=== PATIENT | female | born 1990 | race Caucasian/White ===

== ENCOUNTER 2016-03-23 12:50 | Outpatient (CLI) | payer BC ==
--- NOTE | 2016-03-23 15:28 | DIAGNOSTIC IMAGING REPORT ---
PROCEDURE: US OB DETAILED ANATOMIC INDICATION: ANATOMY TECHNIQUE: Russell scale, color, and spectral Doppler images of the second trimester gravid uterus were obtained. COMPARISON: None. FINDINGS: A single living intrauterine is in vertex presentation. There is regular cardiac activity at a rate of 160 beats per minute. The placenta is posterior and away from the internal cervical os. The cervix is closed measuring approximately 6 cm in length. The amniotic fluid volume is subjectively normal. Biparietal diameter 4.6 cm of 19 weeks and 6-day Head circumference 17 cm at 19 weeks and 4-day Abdominal circumference 14 cm of 19 weeks and 3-day Femur length 3.1 cm at 19 weeks and 4 days Head to abdominal circumference ratio and femur length to abdominal circumference ratios are normal. Estimated weight 294 g Composite gestational age 19 weeks and 4 days, NAYELY 08/13/2016 There was visualization of a number of normal structures including the nuchal region, spine, to the extent that could be visualized, diaphragm, fluid-filled stomach, kidneys, abdomen, urinary bladder, upper and lower extremities, and genitals. A three-vessel umbilical cord, normal and placental cord insertion sites were seen. Brain anatomy, nose and lips, heart views and the head were not well seen. Recommend repeat scan in 2 weeks. IMPRESSION: 1. Single living intrauterine with a composite gestational age of 19 weeks and 4 days, NAYELY 08/13/2016 2. Brain anatomy, nose and lips, heart views and the head were not well seen. Recommend repeat scan in 2 weeks.
== END 2016-03-23 23:00 ==
LOC: US SRH 12:50
DX: O35.8XX0 Maternal care for other (suspected) fetal abnormality and damage, not applicable or unspecified (principal); Z3A.19 19 weeks gestation of pregnancy

== ENCOUNTER 2016-04-05 13:41 | Outpatient (CLI) | payer BC ==
--- NOTE | 2016-04-05 18:43 | DIAGNOSTIC IMAGING REPORT ---
PROCEDURE: US OB RE-EVALUATION INDICATION: VAGINAL BLEEDING, TWO WEEK RECHECK FROM PREVIOUS US TECHNIQUE: Transabdominal williamson scale and color Doppler imaging was obtained of the gravid uterus. COMPARISON: OB ultrasound 03/23/16 FINDINGS: Single live intrauterine is in vertex presentation. Regular heart rate at 137 beats per minute. Placenta is posterior and has a normal appearance without previa or abruption. The cervix is closed and measures 3.6 cm in length. Amniotic fluid volume is subjectively normal. Biparietal diameter 5.2 cm at 21 weeks and 6 days Head circumference 19.6 cm at 21 weeks and 6 days Abdominal circumference 16.6 cm at 21 weeks and 3 days Femur length 3.7 cm 521 weeks and 5 days Normal anatomy with the head, brain, heart, nose and lips well visualized. IMPRESSION: 1. Single live intrauterine with a composite gestational age of 21 weeks and 5 days, NAYELY 08/11/2016. 2. Completed normal anatomy from previous study
== END 2016-04-05 18:00 | disposition home or self-care (01) ==
LOC: OBC SRH 13:41 → OB SRH 13:43 → OBC SRH 18:00
DX: O26.852 Spotting complicating pregnancy, second trimester (principal); O23.592 Infection of other part of genital tract in pregnancy, second trimester; N76.0 Acute vaginitis; B96.89 Other specified bacterial agents as the cause of diseases classified elsewhere; Z3A.22 22 weeks gestation of pregnancy
CPT/HCPCS: 40003; 40021; 90004; 90195; 91224

== ENCOUNTER 2016-05-04 11:59 | Outpatient (CLI) | payer BC | END 2016-05-04 23:00 | disposition home or self-care (01) | LOC: LAB SRH 11:59 | DX: Z34.02 Encounter for supervision of normal first pregnancy, second trimester (principal) | CPT/HCPCS: 90039; 90074; 90261; 91162; 91163 ==

== ENCOUNTER 2016-06-06 08:17 | Outpatient (CLI) | payer BC | END 2016-06-06 23:00 | LOC: LAB SRH 08:17 | DX: Z34.02 Encounter for supervision of normal first pregnancy, second trimester (principal) | CPT/HCPCS: 90074; 92652 ==

== ENCOUNTER 2016-06-25 21:40 | Outpatient (CLI) | payer BC | END 2016-06-26 00:45 | disposition home or self-care (01) | LOC: OBC SRH 21:40 → OB SRH 21:41 → OBC SRH 06-26 00:45 | DX: O47.03 False labor before 37 completed weeks of gestation, third trimester (principal); Z3A.33 33 weeks gestation of pregnancy | CPT/HCPCS: 40003; 40021; 90004; 90469 ==

== ENCOUNTER 2016-07-25 14:42 | Outpatient (CLI) | payer BC | END 2016-07-25 17:30 | disposition home or self-care (01) | LOC: OBC SRH 14:42 → OB SRH 14:43 → OBC SRH 17:30 | PROC: 4A1HXCZ Monitoring of Products of Conception, Cardiac Rate, External Approach (ICD-10-PCS; principal; 2016-07-25) | DX: O16.3 Unspecified maternal hypertension, third trimester (principal); Z3A.37 37 weeks gestation of pregnancy ==

== ENCOUNTER 2016-08-06 17:46 | Inpatient (IN) | payer BC ==
[~2016-08-06] VITALS: Ht 167.6 cm; Wt 120.2 kg
[2016-08-06] MEDS ORDERED: ACETAMINOPHEN325 MG PO (23:44)
[2016-08-07] VITALS (10 sets, daily range): BP systolic 113–135; BP diastolic 55–78
[2016-08-08] VITALS: BP 129/68
[2016-08-08 05:15] VITALS: BP 115/64
[2016-08-08 08:00] VITALS: BP 113/59
--- NOTE | 2016-08-08 11:29 | Provider's Discharge Care Plan ---
Problem, Goal, Plan Problem List 1. Normal labor and delivery Goals: Improve disease control Instructions: Follow up as needed
--- NOTE | 2016-08-08 11:29 | Provider's Discharge Care Plan ---
Problem, Goal, Plan Problem List 1. Normal labor and delivery Goals: Improve disease control Instructions: Follow up as needed
== END 2016-08-08 12:05 | disposition home or self-care (01) | DRG 775 ==
LOC: OBC SRH 17:46 → OB SRH 17:47 → OBC SRH 19:02 → OB SRH 19:02
PROVIDERS: ADMIT Obstetrics & Gynecology
PROC: 10E0XZZ Delivery of Products of Conception, External Approach (ICD-10-PCS; principal; 2016-08-07)
PROC: 0KQM0ZZ Repair Perineum Muscle, Open Approach (ICD-10-PCS; principal; 2016-08-07)
DX: O62.3 Precipitate labor (principal); Z3A.39 39 weeks gestation of pregnancy; Z37.0 Single live birth; O70.1 Second degree perineal laceration during delivery; O69.81X0 Labor and delivery complicated by cord around neck, without compression, not applicable or unspecified
CPT/HCPCS: 40010; 84038; 90004; 90074; 90100; 90469; 90600; 90605; 90606; 91162; 91163; 92680; 92860; 94060; 95059